=== PATIENT | male | born 1960 | race African-American/Black ===

== ENCOUNTER 2018-02-08 11:40 | Inpatient (IN) | payer MEDICARE ==
[~2018-02-08] VITALS: Ht 177.8 cm; Wt 135.9 kg
[2018-02-08] MEDS ORDERED: SODIUM CHLORIDE 0.9% 1,000 ML IV ONE (12:06)
[2018-02-08] MEDS ORDERED: KETOROLAC 30MG/ML VIAL IV ONE (12:15)
[2018-02-08 12:59] LABS: BASOPHILS % 0.9 % (0.0-2.0); EOSINOPHILS % 0.6 % (0.0-5.0); HEMATOCRIT. 44.6 % (42.0-52.0); HEMOGLOBIN. 14.9 g/dL (14.0-18.0); LYMPHOCYTES % 7.9 % (20.0-50.0); MEAN CORPUSCULAR HEMOGLOBIN 29.1 pg (28.0-32.0); MEAN CORPUSCULAR VOLUME 87.4 fL (80.0-94.0); MEAN PLATELET VOLUME 8.9 fl (7.4-10.4); MONOCYTES % 7.1 % (2.0-8.0); NEUTROPHILS % 83.5 % (40.0-76.0); PLATELET 354 x1000/uL (130-400); RED CELL DISTRIBUTION WIDTH 13.8 % (11.6-14.6)
[2018-02-08 13:03] LABS: CHLORIDE 93 mEq/L (98-107)
[2018-02-08 13:06] LABS: INR 1.2
[2018-02-08 13:20] LABS: KETONES URINE 1+ (NEGATIVE); LEUKOCYTE ESTERASE URINE TRACE (NEGATIVE); NITRITE URINE NEGATIVE (NEGATIVE); OCCULT BLOOD URINE NEGATIVE (NEGATIVE); PROTEIN URINE 1+ (NEGATIVE); SPECIFIC GRAVITY URINE 1.023 (1.005-1.030)
[2018-02-08 13:21] LABS: CLARITY URINE HAZY (CLEAR); COLOR URINE DARK YELLOW (YELLOW)
[2018-02-08] MEDS ORDERED: SODIUM CHLORIDE 0.9% 1000ML BAG (SEPSIS BOLUS) IV ONE (13:30)
[2018-02-08] MEDS ORDERED: LIDOCAINE HCL 1% 20ML VIAL (Pyxis) INJ ONE (14:02)
[2018-02-08] MEDS ORDERED: VANCOMYCIN 1 G PREMIX 200 ML IV ONE (14:15)
[2018-02-08] MEDS ORDERED: MEROPENEM 1,000 MG in SODIUM CHLORIDE 0.9% 100 ML IV ONE (14:15)
[2018-02-08 14:40] LABS: CREATINE KINASE 135 IU/L (39-308)
[2018-02-08] MEDS ORDERED: IOHEXOL-350 100 ML BOTTLE ONE (16:04)
[2018-02-08] MEDS ORDERED: ENOXAPARIN 120MG/0.8ML SYR SUBCUT ONE (16:15)
[2018-02-08] MEDS ORDERED: [UNRECOGNIZED DRUG - OTHER] SUBCUT NR (16:45)
[2018-02-08] MEDS ORDERED: ENOXAPARIN 150MG/ML SYR SUBCUT SCH (16:45)
[2018-02-08 17:40] VITALS: BP 185/90
[2018-02-08 17:44] VITALS: BP 185/90
[2018-02-08] MEDS ORDERED: METHYLPREDNISOLONE SOD SUCC 40 MG/ML VIAL IV NR (18:15)
[2018-02-08] MEDS ORDERED: DIPHENHYDRAMINE 50MG/ML VIAL IV PRN (18:15)
[2018-02-08] MEDS ORDERED: HYDROCODONE/APAP 7.5/325MG 1 TAB TABLET PO PRN (18:30)
[2018-02-08] MEDS ORDERED: NA PHOS,M-B/NA PHOS,DI-BA ENEMA 118ML PR PRN (18:30)
[2018-02-08] MEDS ORDERED: CLONIDINE 0.1MG TABLET PO PRN (18:30)
[2018-02-08] MEDS ORDERED: DOCUSATE SODIUM 100MG CAPSULE PO PRN (18:30)
[2018-02-08] MEDS ORDERED: GUAIFENESIN 200MG/10ML SUGAR FREE UDC PO PRN (18:30)
[2018-02-08] MEDS ORDERED: ONDANSETRON HCL 4MG/2ML INJ IV PRN (18:30)
[2018-02-08] MEDS ORDERED: MAGNESIUM/ALUMINUM HYDROXIDE/SIMETHICONE 30ML UDC PO PRN (18:30)
[2018-02-08] MEDS ORDERED: HYDROMORPHONE HCL/PF 2MG/ML CPJ IV PRN (18:30)
[2018-02-08 20:00] VITALS: BP 167/91
[2018-02-08] MEDS ORDERED: WARFARIN SODIUM 5MG TABLET PO NR (20:00)
[2018-02-08] MEDS: ACETAMINOPHEN 325MG TABLET PO PRN (21:26)
[2018-02-08] MEDS: AMLODIPINE 10MG TABLET PO SCH (21:27)
[2018-02-08 22:00] VITALS: BP 175/115
[2018-02-08] MEDS ORDERED: DEXTROSE 50% WATER 50ML SYRINGE IV PRN (22:15)
[2018-02-08] MEDS: INSULIN LISPRO 100 UNITS/ML SUBCUT SCH (22:41)
[2018-02-09] VITALS (12 sets, daily range): BP systolic 126–170; BP diastolic 80–98
[2018-02-09 00:08] LABS: CREATINE KINASE 88 IU/L (39-308)
[2018-02-09 00:09] LABS: CREATINE KINASE MB FRACTION < 1.0 ng/mL (0.5-3.6)
[2018-02-09] MEDS: ENOXAPARIN 150MG/ML SYR SUBCUT SCH ×2 (05:58→17:25)
[2018-02-09] MEDS: BLOOD SUGAR DIAGNOSTIC STRIP TEST SCH ×4 (07:09→21:46)
[2018-02-09 07:26] LABS: BASOPHILS % 0.1 % (0.0-2.0); EOSINOPHILS % 0.1 % (0.0-5.0); HEMATOCRIT. 40.2 % (42.0-52.0); HEMOGLOBIN. 13.4 g/dL (14.0-18.0); LYMPHOCYTES % 11.7 % (20.0-50.0); MEAN CORPUSCULAR HEMOGLOBIN 29.2 pg (28.0-32.0); MEAN CORPUSCULAR VOLUME 87.6 fL (80.0-94.0); MEAN PLATELET VOLUME 9.2 fl (7.4-10.4); NEUTROPHILS % 80.1 % (40.0-76.0); PLATELET 276 x1000/uL (130-400); RED BLOOD CELL COUNT 4.59 mill/uL (4.7-6.1); RED CELL DISTRIBUTION WIDTH 13.9 % (11.6-14.6)
[2018-02-09 07:39] LABS: CHLORIDE 98 mEq/L (98-107)
[2018-02-09 07:52] LABS: CREATINE KINASE 87 IU/L (39-308); HDL CHOLESTEROL 13 mg/dL (40-59)
[2018-02-09 07:54] LABS: LDL CHOLESTEROL 140 mg/dL (5-100)
[2018-02-09 08:02] LABS: CREATINE KINASE MB FRACTION < 1.0 ng/mL (0.5-3.6)
[2018-02-09] MEDS: INSULIN LISPRO 100 UNITS/ML SUBCUT SCH ×4 (08:16→22:01)
[2018-02-09] MEDS: AMLODIPINE 10MG TABLET PO SCH (08:17)
[2018-02-09] MEDS: ALLOPURINOL 100 MG TABLET PO SCH (10:57)
[2018-02-09] MEDS: COLCHICINE 0.6MG TABLET PO SCH (10:58)
[2018-02-09] MEDS ORDERED: WARF-53 PO (13:42)
[2018-02-09] MEDS ORDERED: METF-414 PO (13:43)
[2018-02-09] MEDS: SODIUM CHLORIDE 0.9% 1,000 ML IV SCH (15:07)
[2018-02-09 15:31] LABS: INR 1.2
[2018-02-09] MEDS ORDERED: WARFARIN SODIUM 3MG TABLET PO SCH (18:00)
[2018-02-09] MEDS ORDERED: ATORVASTATIN CALCIUM 20MG TABLET PO SCH (21:00)
[2018-02-10] VITALS (10 sets, daily range): BP systolic 104–148; BP diastolic 76–94
[2018-02-10] MEDS: SODIUM CHLORIDE 0.9% 1,000 ML IV SCH ×2 (03:03→11:29)
[2018-02-10] MEDS: ENOXAPARIN 150MG/ML SYR SUBCUT SCH ×2 (05:21→17:00)
[2018-02-10] MEDS: BLOOD SUGAR DIAGNOSTIC STRIP TEST SCH ×3 (05:35→16:54)
[2018-02-10 07:07] LABS: INR 1.2; PROTHROMBIN TIME 11.8 sec (9.1-11.1)
[2018-02-10] MEDS: COLCHICINE 0.6MG TABLET PO SCH (08:44)
[2018-02-10] MEDS: ALLOPURINOL 100 MG TABLET PO SCH (08:44)
[2018-02-10] MEDS: AMLODIPINE 10MG TABLET PO SCH (08:46)
[2018-02-10] MEDS: INSULIN LISPRO 100 UNITS/ML SUBCUT SCH ×2 (08:47→12:23)
[2018-02-10] MEDS: ACETAMINOPHEN 325MG TABLET PO PRN (11:27)
[2018-02-10] MEDS ORDERED: WARFARIN SODIUM 7.5MG TABLET PO NR (18:00)
== END 2018-02-10 17:20 | DRG 871 ==
LOC: ER 12:31 → 3WST 14:08 → EDBEDREQ 14:17 → EDBEDREQTM 14:17 → ENRESERV 14:52
PROVIDERS: ADMIT Hospitalist; ATTEND Hospitalist
PROC: 02HV33Z Insertion of Infusion Device into Superior Vena Cava, Percutaneous Approach (ICD-10-PCS; principal; 2018-02-08)
PROC: B548ZZA Ultrasonography of Superior Vena Cava, Guidance (ICD-10-PCS; 2018-02-08)
DX: A41.9 Sepsis, unspecified organism (principal); I26.99 Other pulmonary embolism without acute cor pulmonale; I82.401 Acute embolism and thrombosis of unspecified deep veins of right lower extremity; Z68.41 Body mass index [BMI] 40.0-44.9, adult; D68.9 Coagulation defect, unspecified; M10.9 Gout, unspecified; L89.159 Pressure ulcer of sacral region, unspecified stage; I10 Essential (primary) hypertension; E78.5 Hyperlipidemia, unspecified; E66.9 Obesity, unspecified; E11.9 Type 2 diabetes mellitus without complications; E78.00 Pure hypercholesterolemia, unspecified; R32 Unspecified urinary incontinence; R62.7 Adult failure to thrive; Z86.711 Personal history of pulmonary embolism
CPT/HCPCS: 36415; 36569; 71045; 71275; 74174; 76937; 80061; 82550; 82553; 82962; 83605; 83880; 84134; 84145; 84484; 84550; 93005; 93306; 93970; 96365; 96375; 97163; 99291; C1725; J1200; J1650; J1815; J1885; J2185; J2920; J3370; J3490; J7030; J7050; Q9967